=== PATIENT | female | born 1985 | race Hispanic/Latino ===

== ENCOUNTER 2017-11-20 11:59 | Observation (INO) | payer SELFPAY ==
[~2017-11-20] VITALS: Ht 162.6 cm; Wt 84.4 kg
[2017-11-20] MEDS ORDERED: SODIUM CHLORIDE 0.9% 1000ML 1,000 ML IV ONE (12:32)
[2017-11-20] MEDS ORDERED: METHYLPREDNISOLONE SOD SUCC 125MG/2ML VIAL ONE (12:32)
[2017-11-20 12:33] LABS: APPEARANCE,URINE Cloudy (CLEAR); BILIRUBIN,URINE Small (NEGATIVE); COLOR,URINE Dark Yellow (YELLOW); GLUCOSE, URINE (UA) Negative (NEGATIVE); KETONES,URINE Trace mg/dL (NEGATIVE); LEUKOCYTE ESTERASE ,URINE Negative (NEGATIVE); NITRATE,URINE Negative (NEGATIVE); OCCULT BLOOD,URINE Negative (NEGATIVE); PROTEIN,URINE Negative (NEGATIVE)
[2017-11-20 12:36] LABS: HCG,QUAL RESULT NEGATIVE (NEGATIVE)
[2017-11-20 12:41] LABS: AMPHET/METH SCREEN,URINE NEGATIVE (NEGATIVE); BARBITURATE SCREEN, URINE NEGATIVE (NEGATIVE); BENZODIAZEPINES SCREEN,URINE NEGATIVE (NEGATIVE); CANNABINOID SCREEN,URINE POSITIVE (NEGATIVE); COCAINE SCREEN,URINE NEGATIVE (NEGATIVE); OPIATE SCREEN,URINE NEGATIVE (NEGATIVE); PHENCYCLIDINE SCREEN,URINE NEGATIVE (NEGATIVE)
[2017-11-20 12:48] LABS: BACTERIA,URINE Rare /HPF (None Seen); RBC,URINE 0-1 /HPF (0-1); SQUAMOUS EPITHELIAL CELL,UR Few /LPF (0-2); WBC,URINE 0-1 /HPF (0-1)
[2017-11-20] MEDS ORDERED: IPRATROPIUM/ALBUTEROL SULFATE 3 ML SOLUTION IH ONE ×2 (13:31→14:29)
[2017-11-20] MEDS ORDERED: ALBUTEROL SULFATE 0.083% 2.5 MG/3 ML INH IH ONE (13:31)
[2017-11-20] MEDS ORDERED: TERBUTALINE SULFATE VIAL 1MG/ML SQ SCH (13:45)
[2017-11-20] MEDS ORDERED: MAGNESIUM 2GM PREMIX 50ML 50 ML IV ONE (15:17)
[2017-11-20] MEDS ORDERED: AZITHROMYCIN 500MG+NS 250ML 250 ML IV ONE (15:17)
[2017-11-20 15:18] LABS: BASOPHILS % (AUTO) 0.3 % (0.0-5.0); EOSINOPHILS % (AUTO) 1.4 % (0.0-8.0); HEMATOCRIT 40.8 % (36-48); LYMPHOCYTES % (AUTO) 15.2 % (21.0-51.0); MEAN CORPUSCULAR HEMOGLOBIN 31.5 pg (27.0-33.0); MEAN CORPUSCULAR VOLUME 89.8 fL (79-99); MONOCYTES % (AUTO) 1.9 % (3.0-13.0); NEUTROPHILS % (AUTO) 81.2 % (40.0-77.0); PLATELET COUNT (AUTO) 227 K/uL (130-400); RED BLOOD CELL COUNT(AUTO) 4.54 MIL/uL (4.00-5.50); RED CELL DISTRIBUTION WIDTH 12.7 % (11.0-15.5)
[2017-11-20] MEDS ORDERED: CEFTRIAXONE SODIUM 1 GM ONE (15:18)
[2017-11-20 15:28] LABS: CREATININE 0.8 mg/dL (0.5-1.5); POTASSIUM 3.4 mmol/L (3.5-5.1)
[2017-11-20] MEDS ORDERED: HYDROCODONE/ACETAMINOPHEN 5/325 MG TAB PO PRN (18:15)
[2017-11-20] MEDS ORDERED: ACETAMINOPHEN 325 MG TAB PO PRN (18:15)
[2017-11-20] MEDS ORDERED: ONDANSETRON HCL 4 MG/2 ML VIAL IVP PRN (18:15)
[2017-11-20] MEDS ORDERED: TRAMADOL HCL 50 MG TABLET PO PRN (18:15)
[2017-11-20] MEDS ORDERED: HYDRALAZINE HCL 20 MG/ML VIAL IV PRN (18:15)
[2017-11-20] MEDS: METHYLPREDNISOLONE SOD SUCC 40MG/ML 1ML IVP SCH (20:15)
[2017-11-20] MEDS ORDERED: METHYLPREDNISOLONE SOD SUCC 40MG/ML 1ML ONE (22:43)
[2017-11-20 22:50] VITALS: BP 130/84
[2017-11-20] MEDS: IPRATROPIUM/ALBUTEROL SULFATE 3 ML SOLUTION IH SCH (23:56)
[2017-11-21 04:00] VITALS: BP 115/60
[2017-11-21] MEDS: METHYLPREDNISOLONE SOD SUCC 40MG/ML 1ML IVP SCH ×3 (05:34→23:02)
[2017-11-21 05:51] LABS: BASOPHILS % (AUTO) 0.1 % (0.0-5.0); HEMATOCRIT 39.2 % (36-48); LYMPHOCYTES % (AUTO) 10.8 % (21.0-51.0); MEAN CORPUSCULAR HEMOGLOBIN 31.5 pg (27.0-33.0); MEAN CORPUSCULAR HGB CONC 35.2 g/dL (32.0-36.0); MEAN CORPUSCULAR VOLUME 89.5 fL (79-99); NEUTROPHILS % (AUTO) 86.1 % (40.0-77.0); PLATELET COUNT (AUTO) 262 K/uL (130-400); RED BLOOD CELL COUNT(AUTO) 4.38 MIL/uL (4.00-5.50); RED CELL DISTRIBUTION WIDTH 12.7 % (11.0-15.5)
[2017-11-21 06:17] LABS: CREATININE 0.7 mg/dL (0.5-1.5); POTASSIUM 4.3 mmol/L (3.5-5.1)
[2017-11-21] MEDS: IPRATROPIUM/ALBUTEROL SULFATE 3 ML SOLUTION IH SCH ×4 (06:23→23:49)
[2017-11-21 07:00] VITALS: BP 104/63
[2017-11-21] MEDS ORDERED: ENOXAPARIN SODIUM 40 MG/0.4 ML SYRINGE SQ SCH (09:00)
[2017-11-21] MEDS ORDERED: PANTOPRAZOLE SODIUM 40 MG TABLET.DR PO SCH (09:00)
[2017-11-21] MEDS ORDERED: CEFTRIAXONE 1GM/D5W 50ML 50 ML IV SCH (09:00)
[2017-11-21] MEDS ORDERED: AZITHROMYCIN 500MG+NS 250ML 250 ML IV SCH ×2 (09:00→17:00)
[2017-11-21] MEDS ORDERED: CEFTRIAXONE SODIUM 1 GM IVP SCH ×2 (09:00→15:00)
[2017-11-21] MEDS: FLU VACC QS2017-18 36MOS UP/PF 60 MCG/0.5 ML ML IM SCH ×2 (09:55→22:55)
[2017-11-21 11:00] VITALS: BP 115/70
[2017-11-21 15:45] VITALS: BP 119/76
[2017-11-21] MEDS ORDERED: ALBU8.5H8 IH (18:59)
[2017-11-21] MEDS ORDERED: AZIT500T4 PO (18:59)
[2017-11-21] MEDS ORDERED: CEFD300C3 PO (18:59)
[2017-11-21] MEDS ORDERED: IPRA3AMP4 IH (18:59)
[2017-11-21 20:00] VITALS: BP 117/78
[2017-11-21 23:57] VITALS: BP 132/75
== END 2017-11-22 03:10 | disposition home or self-care (01) ==
LOC: EDH 11:59 → EDHIP 12:00 → 3DH 22:26
PROVIDERS: ADMIT Family Medicine; ATTEND Family Medicine
DX: J45.901 Unspecified asthma with (acute) exacerbation (principal); J20.9 Acute bronchitis, unspecified; J42 Unspecified chronic bronchitis; F12.20 Cannabis dependence, uncomplicated; Z87.891 Personal history of nicotine dependence; Z20.828 Contact with and (suspected) exposure to other viral communicable diseases; Z83.3 Family history of diabetes mellitus; Z79.899 Other long term (current) drug therapy; Z23 Encounter for immunization
CPT/HCPCS: 36415 ×2; 71046; 80048 ×2; 80305; 81001; 81025; 83735; 85025 ×2; 87040 ×2; 87071; 87205; 87633; 87804 ×2; 93005; 94640 ×8; 94664; 96365; 96372; 96375; 96376; 99291; A4218; G0008; G0378 ×39; J0456 ×2; J0696 ×2; J1650; J2920 ×4; J2930; J3105; J3475; J7030; Q2038

== ENCOUNTER 2023-04-22 13:05 | Emergency (ER) | payer BC ==
[~2023-04-22] VITALS: Ht 162.6 cm; Wt 81.6 kg
[~2023-04-22 13:05] MED LIST: ALBU8.5H8 IH; AZIT500T4 PO; BENZ-39 PO; CEFD300C3 PO; IBUP-2070 PO; IPRA3AMP24 IH; ONDA4TAB10 PO; OSEL75 PO; PRED20TA3 PO
[2023-04-22] MEDS ORDERED: KETOROLAC 30MG VIAL (30MG/ML) IM ONE (14:30)
[2023-04-22] MEDS ORDERED: TETANUS/DIPHTHERIA TOXOID [ADULT] 0.5 ML VIAL IM ONE (14:30)
[2023-04-22] MEDS ORDERED: HYDROCODONE/ACETAMINOPHEN 7.5/325 MG TAB PO ONE (14:30)
[2023-04-22] MEDS ORDERED: BACITRACIN 1 EACH PACKET TP ONE (14:49)
[2023-04-22] MEDS ORDERED: AMOX-426 PO (15:44)
[2023-04-22] MEDS ORDERED: NAPR-1023 PO (15:44)
[2023-04-22 16:02] VITALS: BP 122/68
== END 2023-04-22 16:03 | disposition home or self-care (01) ==
LOC: EDH 13:05
DX: S41.152A Open bite of left upper arm, initial encounter (principal); S60.222A Contusion of left hand, initial encounter; J45.909 Unspecified asthma, uncomplicated; Z79.52 Long term (current) use of systemic steroids; W54.0XXA Bitten by dog, initial encounter; Y93.89 Activity, other specified; Y92.89 Other specified places as the place of occurrence of the external cause; Y99.8 Other external cause status
CPT/HCPCS: 99284; 90714; 96372; 90471; J1885

== ENCOUNTER 2023-11-14 13:38 | Emergency (ER) | payer BC ==
[~2023-11-14] VITALS: Ht 162.6 cm; Wt 84.4 kg
[~2023-11-14 13:38] MED LIST changes: +AMOX-426 PO; +NAPR-1023 PO
[2023-11-14 14:51] LABS: BASOPHILS # (AUTO) 0.02 K/uL (0.00-0.20); BASOPHILS % (AUTO) 0.3 % (0.0-5.0); EOSINOPHILS # (AUTO) 0.11 K/uL (0.00-0.70); EOSINOPHILS % (AUTO) 1.5 % (0.0-8.0); HEMATOCRIT 41.8 % (36-48); IMMATURE GRANULOCYTE ABSOLUTE 0.02 K/uL (0-1); LYMPHOCYTES # (AUTO) 1.5 K/uL (1.0-4.8); LYMPHOCYTES % (AUTO) 19.7 % (21.0-51.0); MEAN CORPUSCULAR HEMOGLOBIN 31.7 pg (27.0-33.0); MEAN CORPUSCULAR HGB CONC 34.4 g/dL (32.0-36.0); MEAN CORPUSCULAR VOLUME 92.1 fL (79-99); MONOCYTES # (AUTO) 0.7 K/uL (0.1-1.0); NEUTROPHILS # (AUTO) 5.2 K/uL (1.8-7.7); NEUTROPHILS % (AUTO) 69.2 % (40.0-77.0); PLATELET COUNT (AUTO) 235 K/uL (130-400); RED BLOOD CELL COUNT(AUTO) 4.54 MIL/uL (4.00-5.50); RED CELL DISTRIBUTION WIDTH 12.4 % (11.0-15.5); WHITE BLOOD COUNT (AUTO) 7.4 K/uL (4.8-10.8)
[2023-11-14 14:58] LABS: CREATININE 0.8 mg/dL (0.5-1.5); POTASSIUM 4.2 mmol/L (3.5-5.1)
[2023-11-14 15:02] LABS: ALBUMIN 3.8 g/dL (3.5-5.0); BILIRUBIN,TOTAL 0.5 mg/dL (0.2-1.0); TOTAL PROTEIN, SERUM 7.9 g/dL (6.0-8.3)
[2023-11-14] MEDS: PREDNISONE 20 MG TABLET PO ONE (18:16)
[2023-11-14 19:47] VITALS: PULSE 78; RESP 14
[2023-11-14] MEDS: IPRATROPIUM/ALBUTEROL SULFATE 3 ML SOLUTION IH ONE (19:47)
[2023-11-14] MEDS ORDERED: SYMB8060 IH (20:39)
[2023-11-14] MEDS ORDERED: ALBU18HF7 IH (20:39)
[2023-11-14] MEDS ORDERED: PRED20TA3 PO (20:39)
[2023-11-14] MEDS ORDERED: MONT-39 PO (20:39)
[2023-11-14 20:56] VITALS: BP 121/76; PULSE 78; RESP 18; O2SAT 100
== END 2023-11-14 21:06 | disposition home or self-care (01) ==
LOC: EDH 13:38
DX: J45.901 Unspecified asthma with (acute) exacerbation (principal); J20.9 Acute bronchitis, unspecified; Z79.899 Other long term (current) drug therapy; Z98.890 Other specified postprocedural states
CPT/HCPCS: 36415; 71045; 80053; 85025; 94640